=== PATIENT | female | born 1940 | race African-American/Black ===

== ENCOUNTER 2016-07-20 21:21 | Emergency (ER) | payer MEDICARE ==
[~2016-07-20] VITALS: Ht 175.3 cm; Wt 80.0 kg
[~2016-07-20 21:21] MED LIST: ALL DAY10 MG PO; ALLOPURINOL100 MG OR; AMOXICILLIN/CL500 MG PO; AMOXICILLIN500 MG OR; AMOXICILLIN500 MG PO; ANTIVERT PO; ASA LO-DOSE81 MG OR; ASPIRIN EC325 MG PO; ASPIRIN EC81 MG PO; ASTELIN NASA137 MCG; ATORVASTATIN CA10 MG PO; AUGMENTIN875TAB PO; BAYER LOW81 MG OR; BENAZEPRIL10 MG PO; BENAZEPRIL20 M1 PO; CARVEDILOL25 MG PO; CATAPRES0.1 MG OR; CHILD ASA81 MG PO; CLONIDINE0.1 MG PO; COREG25 MG OR; FERROUS SULF325 M2 PO; FLEXERIL10 MG PO; FLEXERIL5 M1 PO; FLONASE SPRAY50 MC1; LOPRESSOR 550 MG/TAB PO; LOPRESSOR25 M1 PO; LORTAB 10 OR; LOTENSIN20 MG OR; LOTREL1 CA1 OR; MAXZIDE-2537.5 MG/TA PO; MOBIC7.5 M1 PO; NAPROSYN375 MG PO; NAPROXEN500 MG OR; OMNICEF300 MG OR; PEPCID AC10 M1 OR; PLAVIX75 MG OR; PLAVIX75 MG PO; PRAVACHOL40 MG PO; PRAVASTATIN SOD20 MG PO; PRAVASTATIN40 MG OR; PT UNSURE OF MEDS; SIMVASTATIN40 MG OR; SOLU-MEDROL125 MG IM; TOBRAMYCIN0.3 % OU; TRAMADOL HCL50 MG PO; TRIAM/HCTZ1 CAP OR; ULTRAM50 M1 PO; ULTRAM50 MG OR; ZOCOR20 MG OR; ZOFRAN ODT8 MG PO; ZPAK PO; ZYRTEC-D AL1 OR; allo OR
[2016-07-20 21:22] VITALS: BP 187/120
[2016-07-20] MEDS ORDERED: [UNRECOGNIZED DRUG - REMARK] (21:51)
== END 2016-07-20 22:55 | disposition left against medical advice (07) ==
LOC: ED 21:21 → LWOBS 22:55
DX: Z91.19 Patient's noncompliance with other medical treatment and regimen (principal)

== ENCOUNTER 2017-01-08 15:26 | Observation (INO) | payer MEDICARE ==
[~2017-01-08] VITALS: Ht 175.3 cm; Wt 69.6 kg
[~2017-01-08 15:26] MED LIST changes: +(None)1 % OD; +CYCLOBENZAPR5 MG PO; +MEDDOSEPAK PO; +METOPROL TAR25 MG PO; +NAPROSYN500 MG PO; +ROBITUSSIN AC10 ML PO; +[UNRECOGNIZED DRUG - REMARK]
[2017-01-08 16:49] LABS: HEMATOCRIT 36.6 % (37.0-47.0); HEMOGLOBIN 11.5 g/dl (12.0-16.0); IMMATURE GRANULOCYTES 0.2 % (0.0-1.0); MEAN CELL VOLUME 95.1 fL CALC (80.0-100.0); MEAN CORPUSCULAR HGB 29.9 pG CALC (26.0-32.0); MEAN CORPUSCULAR HGB CONC 31.4 g/L CALC (32.0-36.0); NEUT# 1.69 thou/uL (2.00-7.15); RED BLOOD COUNT 3.85 mill/uL (4.20-5.60); RED CELL DISTRI WIDTH 14.8 % (11.5-15.5)
[2017-01-08 17:01] LABS: ANION GAP 16 (6-22 (CALC)); BUN 22 mg/dL (8-23); BUN/CREATININE RATIO 21 (12-20 (CALC)); CALCIUM 9.4 mg/dL (8.4-10.2); CARBON DIOXIDE 25 mmol/l (22-30); CHLORIDE 109 mmol/l (95-108); GFR 54 ML/MIN (>=60 (CALC)); GFR FOR AFR.AMER. > 60 ML/MIN (>=60 (CALC)); GLUCOSE 99 mg/dL (82-115); SODIUM 146 mmol/l (137-146)
[2017-01-08 19:50] VITALS: BP 180/108
[2017-01-08 22:26] VITALS: BP 156/98
[2017-01-09] VITALS (7 sets, daily range): BP systolic 129–152; BP diastolic 80–98
[2017-01-09 06:21] LABS: HEMATOCRIT 34.6 % (37.0-47.0); HEMOGLOBIN 11.3 g/dl (12.0-16.0); IMMATURE GRANULOCYTES 0.3 % (0.0-1.0); MEAN CELL VOLUME 91.1 fL CALC (80.0-100.0); MEAN CORPUSCULAR HGB 29.7 pG CALC (26.0-32.0); MEAN CORPUSCULAR HGB CONC 32.7 g/L CALC (32.0-36.0); NEUT# 2.51 thou/uL (2.00-7.15); RED BLOOD COUNT 3.8 mill/uL (4.20-5.60); RED CELL DISTRI WIDTH 14.6 % (11.5-15.5)
[2017-01-09 06:37] LABS: ALBUMIN 3.5 g/dL (3.2-5.0); ALKALINE PHOSPHATASE 21 u/l (38-126); ANION GAP 12 (6-22 (CALC)); BILIRUBIN, TOTAL 0.7 mg/dL (0.0-1.4); BUN 15 mg/dL (8-23); BUN/CREATININE RATIO 17 (12-20 (CALC)); CALCIUM 9.2 mg/dL (8.4-10.2); CARBON DIOXIDE 28 mmol/l (22-30); CHLORIDE 109 mmol/l (95-108); CREATININE 0.9 mg/dL (0.5-1.0); GFR > 60 ML/MIN (>=60 (CALC)); GFR FOR AFR.AMER. > 60 ML/MIN (>=60 (CALC)); GLUCOSE 144 mg/dL (82-115); POTASSIUM 3.7 mmol/l (3.5-5.1); SGOT/AST 18 u/l (9-36); SGPT/ALT 23 u/l (11-66); SODIUM 145 mmol/l (137-146); TOTAL PROTEIN 6.2 g/dL (6.3-8.2)
[2017-01-10 04:19] VITALS: BP 138/80
[2017-01-10 06:06] LABS: HEMATOCRIT 30.7 % (37.0-47.0); HEMOGLOBIN 9.9 g/dl (12.0-16.0); IMMATURE GRANULOCYTES 0.3 % (0.0-1.0); MEAN CELL VOLUME 91.6 fL CALC (80.0-100.0); MEAN CORPUSCULAR HGB 29.6 pG CALC (26.0-32.0); MEAN CORPUSCULAR HGB CONC 32.2 g/L CALC (32.0-36.0); NEUT# 4.93 thou/uL (2.00-7.15); RED BLOOD COUNT 3.35 mill/uL (4.20-5.60); RED CELL DISTRI WIDTH 14.6 % (11.5-15.5)
[2017-01-10 06:21] LABS: BUN 19 mg/dL (8-23); BUN/CREATININE RATIO 19 (12-20 (CALC)); CALCIUM 8.9 mg/dL (8.4-10.2); CALCULATED LDLCHOLESTEROL 57 mg/dL (62-129 (CALC)); CARBON DIOXIDE 29 mmol/l (22-30); CHLORIDE 108 mmol/l (95-108); CHOLESTEROL HDL RATIO 2.1 (<4.4 (CALC)); GFR 54 ML/MIN (>=60 (CALC)); GFR FOR AFR.AMER. > 60 ML/MIN (>=60 (CALC)); GLUCOSE 96 mg/dL (82-115); HDL CHOLESTEROL 64 mg/dL (>=40); SODIUM 143 mmol/l (137-146); TOTAL CHOLESTEROL 133 mg/dl (0-199); TOTAL TRIGLYCERIDES 61 mg/dl (30-149); VLDL CHOLESTROL 12 mg/dl (0-48 (CALC))
[2017-01-10 06:22] LABS: ANION GAP 10 (6-22 (CALC))
[2017-01-10 08:38] VITALS: BP 137/72
[2017-01-10 13:36] VITALS: BP 138/84
[2017-01-10 15:46] VITALS: BP 158/94
== END 2017-01-10 16:50 | disposition home or self-care (01) ==
LOC: ED 15:26 → ED-I 17:21 → ED 17:37 → MS2 17:38
PROVIDERS: Family Medicine; ADMIT Internal Medicine Geriatric Medicine; ATTEND Internal Medicine Geriatric Medicine
DX: T59.811A Toxic effect of smoke, accidental (unintentional), initial encounter (principal); J98.01 Acute bronchospasm; I25.10 Atherosclerotic heart disease of native coronary artery without angina pectoris; I10 Essential (primary) hypertension; I25.2 Old myocardial infarction; E78.5 Hyperlipidemia, unspecified; M19.90 Unspecified osteoarthritis, unspecified site; K21.9 Gastro-esophageal reflux disease without esophagitis; K27.9 Peptic ulcer, site unspecified, unspecified as acute or chronic, without hemorrhage or perforation; E03.9 Hypothyroidism, unspecified; F41.9 Anxiety disorder, unspecified; Y92.009 Unspecified place in unspecified non-institutional (private) residence as the place of occurrence of the external cause; Z86.73 Personal history of transient ischemic attack (TIA), and cerebral infarction without residual deficits; R07.9 Chest pain, unspecified
CPT/HCPCS: G0328

== ENCOUNTER 2017-12-26 15:50 | Observation (INO) | payer MEDICARE ==
[~2017-12-26] VITALS: Ht 172.7 cm; Wt 68.0 kg
[~2017-12-26 15:50] MED LIST changes: +METO50TA52 PO; -METOPROL TAR25 MG PO
[2017-12-26 17:24] LABS: IMMATURE GRANULOCYTES 0.4 % (0.0-5.0); MEAN CELL VOLUME 92.5 fL CALC (80.0-100.0); MEAN CORPUSCULAR HGB 29.9 pG CALC (26.0-32.0); MEAN CORPUSCULAR HGB CONC 32.4 g/L CALC (32.0-36.0); NEUT# 8.79 thou/uL (2.00-7.15); RED BLOOD COUNT 4.41 mill/uL (4.20-5.60); RED CELL DISTRI WIDTH 13.5 % (11.5-15.5)
[2017-12-26] MEDS ORDERED: MELOXICAM7.5 MG PO (17:24)
[2017-12-26] MEDS ORDERED: TIZANIDINE2 MG PO (17:25)
[2017-12-26 17:27] LABS: HEMATOCRIT 40.8 % (37.0-47.0); HEMOGLOBIN 13.2 g/dl (12.0-16.0)
[2017-12-26] MEDS ORDERED: BLOOD PRESSURE (17:29)
[2017-12-26 17:40] LABS: ALKALINE PHOSPHATASE 24 u/l (38-126); ANION GAP 16 (6-22 (CALC)); BILIRUBIN, TOTAL 0.8 mg/dL (0.0-1.4); BUN 21 mg/dL (8-23); BUN/CREATININE RATIO 24 (12-20 (CALC)); CARBON DIOXIDE 25 mmol/l (22-30); CHLORIDE 104 mmol/l (95-108); CREATININE 0.9 mg/dL (0.5-1.0); GFR > 60 ML/MIN (>=60 (CALC)); GFR FOR AFR.AMER. > 60 ML/MIN (>=60 (CALC)); POTASSIUM 3.9 mmol/l (3.5-5.1); SGOT/AST 26 u/l (9-36); SODIUM 141 mmol/l (137-146); TOTAL PROTEIN 7.1 g/dL (6.3-8.2)
[2017-12-26 18:25] VITALS: BP 159/96
[2017-12-27 04:00] VITALS: BP 103/63
[2017-12-27 08:22] VITALS: BP 102/64
[2017-12-27 16:10] VITALS: BP 108/66
[2017-12-27 20:00] VITALS: BP 139/88
[2017-12-28 04:00] VITALS: BP 134/75
[2017-12-28 05:28] LABS: IMMATURE GRANULOCYTES 0.2 % (0.0-5.0); MEAN CELL VOLUME 91.9 fL CALC (80.0-100.0); MEAN CORPUSCULAR HGB 30.3 pG CALC (26.0-32.0); MEAN CORPUSCULAR HGB CONC 32.9 g/L CALC (32.0-36.0); NEUT# 4.42 thou/uL (2.00-7.15); RED BLOOD COUNT 3.6 mill/uL (4.20-5.60); RED CELL DISTRI WIDTH 13.8 % (11.5-15.5)
[2017-12-28 05:30] LABS: HEMATOCRIT 33.1 % (37.0-47.0); HEMOGLOBIN 10.9 g/dl (12.0-16.0)
[2017-12-28 05:42] LABS: ALKALINE PHOSPHATASE < 20 u/l (38-126); ANION GAP 10 (6-22 (CALC)); BILIRUBIN, TOTAL 0.5 mg/dL (0.0-1.4); BUN 22 mg/dL (8-23); BUN/CREATININE RATIO 25 (12-20 (CALC)); CALCULATED LDLCHOLESTEROL 39 mg/dL (62-129 (CALC)); CARBON DIOXIDE 31 mmol/l (22-30); CHLORIDE 105 mmol/l (95-108); CHOLESTEROL HDL RATIO 1.7 (<4.4 (CALC)); CREATININE 0.9 mg/dL (0.5-1.0); GFR > 60 ML/MIN (>=60 (CALC)); GFR FOR AFR.AMER. > 60 ML/MIN (>=60 (CALC)); HDL CHOLESTEROL 68 mg/dL (>=40); POTASSIUM 4.1 mmol/l (3.5-5.1); SGOT/AST 19 u/l (9-36); SODIUM 141 mmol/l (137-146); TOTAL CHOLESTEROL 116 mg/dl (0-199); TOTAL TRIGLYCERIDES 44 mg/dl (30-149); VLDL CHOLESTROL 9 mg/dl (0-48 (CALC))
[2017-12-28 05:43] LABS: TOTAL PROTEIN 5.5 g/dL (6.3-8.2)
[2017-12-28 08:00] VITALS: BP 134/82
[2017-12-28 10:37] LABS: URINE BILIRUBIN - DIPSTICK NEGATIVE (NEGATIVE); URINE BLOOD DIPSTICK NEGATIVE (NEGATIVE); URINE COLOR YELLOW; URINE GLUCOSE - DIPSTICK NEGATIVE (NEGATIVE); URINE KETONE NEGATIVE (NEGATIVE); URINE LEUK ESTERASE TRACE (NEGATIVE); URINE NITRITE - DIPSTICK NEGATIVE (Negative); URINE PH 7.5 (4.5-8.0); URINE PROTEIN - DIPSTICK NEGATIVE (NEG-TRACE); URINE UROBILINOGEN - DIPSTICK 0.2 E.U./dL (0.2)
[2017-12-28 10:38] LABS: URINE CLARITY CLEAR
[2017-12-28 16:23] VITALS: BP 127/83
[2017-12-28 20:49] VITALS: BP 132/76
[2017-12-29 04:00] VITALS: BP 151/88
[2017-12-29 04:54] LABS: HEMATOCRIT 33.9 % (37.0-47.0); HEMOGLOBIN 10.9 g/dl (12.0-16.0); IMMATURE GRANULOCYTES 0.2 % (0.0-5.0); MEAN CELL VOLUME 91.9 fL CALC (80.0-100.0); MEAN CORPUSCULAR HGB 29.5 pG CALC (26.0-32.0); MEAN CORPUSCULAR HGB CONC 32.2 g/L CALC (32.0-36.0); NEUT# 2.81 thou/uL (2.00-7.15); RED BLOOD COUNT 3.69 mill/uL (4.20-5.60); RED CELL DISTRI WIDTH 13.6 % (11.5-15.5)
[2017-12-29 05:11] LABS: ANION GAP 10 (6-22 (CALC)); BUN 19 mg/dL (8-23); BUN/CREATININE RATIO 21 (12-20 (CALC)); CARBON DIOXIDE 32 mmol/l (22-30); CHLORIDE 103 mmol/l (95-108); CREATININE 0.9 mg/dL (0.5-1.0); GFR > 60 ML/MIN (>=60 (CALC)); GFR FOR AFR.AMER. > 60 ML/MIN (>=60 (CALC)); POTASSIUM 3.9 mmol/l (3.5-5.1); SODIUM 141 mmol/l (137-146)
[2017-12-29 08:00] VITALS: BP 100/46
[2017-12-29 09:31] VITALS: BP 151/88
== END 2017-12-29 10:40 | disposition home or self-care (01) ==
LOC: ED 15:50 → ED-I 17:07 → ED 17:07 → MS2 17:13
PROVIDERS: Emergency Medicine; ADMIT Internal Medicine; ATTEND Internal Medicine Geriatric Medicine
DX: K56.41 Fecal impaction (principal); I10 Essential (primary) hypertension; I25.10 Atherosclerotic heart disease of native coronary artery without angina pectoris; I49.9 Cardiac arrhythmia, unspecified; K21.9 Gastro-esophageal reflux disease without esophagitis; K27.9 Peptic ulcer, site unspecified, unspecified as acute or chronic, without hemorrhage or perforation; E03.9 Hypothyroidism, unspecified; M17.11 Unilateral primary osteoarthritis, right knee; Z23 Encounter for immunization; Z86.73 Personal history of transient ischemic attack (TIA), and cerebral infarction without residual deficits; F41.1 Generalized anxiety disorder
CPT/HCPCS: Q9967

== ENCOUNTER 2018-05-11 15:53 | Emergency (ER) | payer MEDICARE ==
[~2018-05-11] VITALS: Ht 172.7 cm; Wt 85.0 kg
[~2018-05-11 15:53] MED LIST changes: +BLOOD PRESSURE; +MELOXICAM7.5 MG PO; +TIZANIDINE2 MG PO
[2018-05-11 18:30] LABS: HEMATOCRIT 34.9 % (37.0-47.0); HEMOGLOBIN 11.1 g/dl (12.0-16.0); IMMATURE GRANULOCYTES 0.2 % (0.0-5.0); MEAN CELL VOLUME 92.3 fL CALC (80.0-100.0); MEAN CORPUSCULAR HGB 29.4 pG CALC (26.0-32.0); MEAN CORPUSCULAR HGB CONC 31.8 g/L CALC (32.0-36.0); NEUT# 2.97 thou/uL (2.00-7.15); RED BLOOD COUNT 3.78 mill/uL (4.20-5.60); RED CELL DISTRI WIDTH 14.7 % (11.5-15.5)
[2018-05-11 18:51] LABS: ANION GAP 12 (6-22 (CALC)); BUN 20 mg/dL (8-23); BUN/CREATININE RATIO 20 (12-20 (CALC)); CARBON DIOXIDE 29 mmol/l (22-30); CHLORIDE 102 mmol/l (95-108); GFR 54 ML/MIN (>=60 (CALC)); GFR FOR AFR.AMER. > 60 ML/MIN (>=60 (CALC)); POTASSIUM 3.7 mmol/l (3.5-5.1); SODIUM 139 mmol/l (137-146)
[2018-05-11 19:15] LABS: URINE BILIRUBIN - DIPSTICK NEGATIVE (NEGATIVE); URINE BLOOD DIPSTICK NEGATIVE (NEGATIVE); URINE COLOR YELLOW; URINE GLUCOSE - DIPSTICK NEGATIVE (NEGATIVE); URINE KETONE NEGATIVE (NEGATIVE); URINE LEUK ESTERASE NEGATIVE (NEGATIVE); URINE NITRITE - DIPSTICK NEGATIVE (Negative); URINE PROTEIN - DIPSTICK NEGATIVE (NEG-TRACE); URINE UROBILINOGEN - DIPSTICK 0.2 E.U./dL (0.2)
[2018-05-11 20:27] VITALS: BP 181/92
== END 2018-05-11 20:40 | disposition home or self-care (01) ==
LOC: ED 15:53
PROVIDERS: Family Medicine
DX: R42 Dizziness and giddiness (principal); I10 Essential (primary) hypertension; R55 Syncope and collapse; Z86.73 Personal history of transient ischemic attack (TIA), and cerebral infarction without residual deficits

== ENCOUNTER 2019-04-24 | Emergency (ER) | payer MEDICARE ==
[2019-04-24] MEDS ORDERED: IRON (FERROUS S50 MG PO (03:26)
[2019-04-24] MEDS ORDERED: NORVASC2.5 M1 PO (03:27)
[2019-04-24 04:14] LABS: HEMATOCRIT 36.3 % (37.0-47.0); HEMOGLOBIN 11.9 g/dl (12.0-16.0); IMMATURE GRANULOCYTES 0.2 % (0.0-5.0); MEAN CELL VOLUME 90.3 fL CALC (80.0-100.0); MEAN CORPUSCULAR HGB 29.6 pG CALC (26.0-32.0); MEAN CORPUSCULAR HGB CONC 32.8 g/L CALC (32.0-36.0); NEUT# 4.58 thou/uL (2.00-7.15); RED BLOOD COUNT 4.02 mill/uL (4.20-5.60); RED CELL DISTRI WIDTH 13.7 % (11.5-15.5)
[2019-04-24 04:28] LABS: BILIRUBIN, TOTAL 0.7 mg/dL (0.0-1.4); CREATININE 1.1 mg/dL (0.5-1.0); POTASSIUM 3.1 mmol/l (3.5-5.1)
[2019-04-24 04:29] LABS: ALBUMIN 4.3 g/dL (3.2-5.0); TOTAL PROTEIN 7.4 g/dL (6.3-8.2)
[2019-04-24] MEDS ORDERED: COLACE100 MG PO (05:28)
== END 2019-04-24 06:10 | disposition home or self-care (01) ==
PROVIDERS: Emergency Medicine
DX: K59.00 Constipation, unspecified (principal); I10 Essential (primary) hypertension

== ENCOUNTER 2019-10-22 12:54 | Inpatient (IN) | payer MEDICARE ==
[~2019-10-22] VITALS: Ht 175.3 cm; Wt 66.0 kg
[~2019-10-22 12:54] MED LIST changes: +COLACE100 MG PO; +IRON (FERROUS S50 MG PO; +NORVASC2.5 M1 PO
--- NOTE | 2019-10-22 12:55 | NUR ---
PATIENT SEEN IN [facility] HAS SWELLING TO LEFT HAND FROM BEE STING JUST PRIOR TO ARRIVAL TO HOSPITAL. PATIENT HAS NO SOB OR THROAT SWELLING AT THIS TIME. PATIENT INFORMED OF WAIT AND VERBALIZES UNDERSTANDING. MD NOTIFIED OF PATIENT STATUS
--- NOTE | 2019-10-22 13:33 | NUR ---
PATIENT STATES THAT BEE STING NOW HAPPEN ED 2 DAYS PRIOR NOT TODAY. MD NOTIFIED OF PATIENT STATUS
--- NOTE | 2019-10-22 14:30 | NUR ---
PT RESTING SUPINE IN NO DISTRESS. VSS. PT ALERT AND RESPONSIVE
[2019-10-22 14:40] LABS: IMMATURE GRANULOCYTES 0.3 % (0.0-5.0); MEAN CORPUSCULAR HGB 29.1 pG CALC (26.0-32.0); MEAN CORPUSCULAR HGB CONC 31.3 g/dL CAL (32.0-36.0); NEUT# 1.88 thou/uL (2.00-7.15); RED BLOOD COUNT 3.44 mill/uL (4.20-5.60); RED CELL DISTRI WIDTH 14.3 % (11.5-15.5)
[2019-10-22 15:02] LABS: ALBUMIN 3.7 g/dL (3.2-5.0); ALKALINE PHOSPHATASE 26 u/l (38-126); ANION GAP 7 (6-22 (CALC)); BILIRUBIN, TOTAL 0.5 mg/dL (0.0-1.4); BUN 26 mg/dL (8-23); BUN/CREATININE RATIO 25 (12-20 (CALC)); CARBON DIOXIDE 29 mmol/l (22-30); CHLORIDE 108 mmol/l (95-108); GFR 53 ML/MIN (>=60 (CALC)); GFR FOR AFR.AMER. > 60 ML/MIN (>=60 (CALC)); POTASSIUM 3.4 mmol/l (3.5-5.1); SGOT/AST 25 u/l (9-36); SODIUM 140 mmol/l (137-146); TOTAL PROTEIN 6.6 g/dL (6.3-8.2)
--- NOTE | 2019-10-22 16:20 | NUR ---
ASSISTED PT UP TO [facility] TO URINATE. PT MOVES WELL BUT SLOWLY. NO DEFICITS NOTED. PT STOOD AT BEDSIDE, PT STATES SHE "FEELS WEAK ALL OVER". PT DENIES ANY FOCAL WEAKNESS. PT STATES SHE "FELT DIZZY EARLIER TODAY". PT DENIES DIZZINESS AT THIS TIME. PT ALERT AND ORIENTED X4. SWITCHBOARD MANAGER A T BEDSIDE. UPDATED ON POC AND MRI
[2019-10-22 17:45] LABS: URINE BILIRUBIN - DIPSTICK NEGATIVE (NEGATIVE); URINE BLOOD DIPSTICK NEGATIVE (NEGATIVE); URINE COLOR YELLOW; URINE GLUCOSE - DIPSTICK NEGATIVE (NEGATIVE); URINE KETONE NEGATIVE (NEGATIVE); URINE LEUK ESTERASE NEGATIVE (NEGATIVE); URINE NITRITE - DIPSTICK NEGATIVE (Negative); URINE PROTEIN - DIPSTICK NEGATIVE (NEG-TRACE); URINE SPECIFIC GRAVITY 1.025; URINE UROBILINOGEN - DIPSTICK 0.2 E.U./dL (0.2)
--- NOTE | 2019-10-22 18:00 | NUR ---
PT RESTIGN SUPINE , LAUGHING AND TALKING WITH AERIAL HURRICANE HUNTER. UPDATED ON POC AND WAIT TIME. PT DENIES NEEDS AT THIS TIME
[2019-10-22] MEDS ORDERED: BUSPAR10 M1 PO (18:19)
[2019-10-22] MEDS ORDERED: LORATADINE10 M1 PO (18:19)
--- NOTE | 2019-10-22 18:40 | NUR ---
PT UPDATED ON ADMIT TO MED SURG. PT AGREEABLE AND PYTHON JAVA DEVELOPER AT BEDSIDE
--- NOTE | 2019-10-22 18:47 | NUR ---
SPOKE WITH DR BOOTHE TO NOTIFY OF BP 171/100 AND HR 66. ORDER FOR PO AMLODIPINE 5MG NOW.
--- NOTE | 2019-10-22 19:05 | NUR ---
called report to silvestre almodovar, report to tea velásquez in ed, updated on awaiting release of po amlodipine for bp before transport.
--- NOTE | 2019-10-22 19:15 | NUR ---
TELEPHONE REPORT RECEIVED FROM Richie BENITEZ RN IN ED.
--- NOTE | 2019-10-22 21:10 | NUR ---
BY STRETCHER TO ROOM 270
--- NOTE | 2019-10-22 21:20 | NUR ---
PT ARRIVES TO UNIT AT 2119 VIA STRETCHER, ACCOMPANIED BY Kamlesh DANG RN.
[2019-10-22 21:24] VITALS: BP 151/103
--- NOTE | 2019-10-22 21:50 | NUR ---
PT RESTING IN BED, ALERT AND ORIENTED. RESPIRATIONS ARE EVEN AND UNLABORED, LUNGS SOUND CLEAR. PEDAL PULSES ARE STRONG. PT DENIES ANY PAIN OR DISCOMFORT AT THIS TIME. PT ORIENTED TO ROOM AND CALL HINES SYSTEM. PT STATES SHE HASN'E HAD A BM IN A FEW DAYS, PT PROVIDED WITH MILK OF MAG AND PRUNE JUICE. PT ENCOURAGED TO CALL FOR ASSISTANCE. TELE IN PLACE. WILL CONTINUE TO MONITOR.
[2019-10-22 23:55] VITALS: BP 143/87
--- NOTE | 2019-10-23 01:22 | NUR ---
TROPONIN RESULTED, NEGATIVE.
[2019-10-23 03:55] VITALS: BP 129/80
[2019-10-23 06:03] LABS: CHOLESTEROL HDL RATIO 2.1 (<4.4 (CALC)); MAGNESIUM 2.3 mg/dL (1.6-2.3)
[2019-10-23 08:15] VITALS: BP 136/94
--- NOTE | 2019-10-23 08:15 | NUR ---
ASSESSMENT IS COMPLETED: IV SITE IS FREE FROM REDNESS OR EDEMA. HR IS REG,PULSES ARE STRONG X4, ABD IS SOFT WITH ACTIVE BS. BREATH SOUNDS ARE CLEAR,BILATERALLY, TELE MONITOR IN PLACE. LEFT HAND IS PUFFY.
[2019-10-23 10:30] VITALS: BP 142/90
[2019-10-23] MEDS ORDERED: PLAVIX75 MG PO (10:46)
--- NOTE | 2019-10-23 12:30 | NUR ---
PT RECEIVED DISCHARGE INSTRUCITONS AND VERBALIZED UNDERSTANDING. IV SITE AND TELE MONITOR DISCONTINUED, CATHETER INTACT. Discharge instructions given. Patient verbalizes understanding of same. Discharged in stable condition via Wheelchair to Home with family. All belongings sent with pt.
--- NOTE | 2019-10-23 13:31 | NUR ---
PT CAME BACK TO THE HOSPITAL. NOTICED A KNOT ON HER R FOREARM. INQUIRED "WHAT CAN I DO" EXPLAINED ABOUT PUTTING AN ICE PACK ON IT. LOOKS LIKE WHEN LAB WAS DRAWN , UPSET THE VEIN. CAN SEE A SMALL PUNCTURE. AND BRUISING WAS STARTING. PT STATED" I BELIEVE IT HAPPENED WHEN THEY PUT THAT NEEDLE IN". INSTRUCTED ABOUT THE ICE PACK. SON WAS WITH PT.
--- NOTE | 2019-10-23 14:06 | NUR ---
Attempted to see patient. Patient discharged.
== END 2019-10-23 12:30 | disposition home or self-care (01) | DRG 948 ==
LOC: ED 12:54 → ED-I 15:15 → ED 15:53 → ICU 15:54 → MS2 15:54
PROVIDERS: Family Medicine; Nurse Practitioner; ADMIT Internal Medicine; ATTEND Internal Medicine
DX: R41.3 Other amnesia (principal); R20.0 Anesthesia of skin; T63.441A Toxic effect of venom of bees, accidental (unintentional), initial encounter; I10 Essential (primary) hypertension; Z86.73 Personal history of transient ischemic attack (TIA), and cerebral infarction without residual deficits; Z20.828 Contact with and (suspected) exposure to other viral communicable diseases
CPT/HCPCS: J1650

== ENCOUNTER 2020-10-03 10:41 | Emergency (ER) | payer MEDICARE ==
[~2020-10-03 10:41] MED LIST changes: +BUSPAR10 M1 PO; +FLEXERIL5 MG PO; +LORATADINE10 M1 PO; +TAM75CAP PO
[2020-10-03 12:11] LABS: IMMATURE GRANULOCYTES 0.3 % (0.0-5.0); MEAN CELL VOLUME 95.9 fL CALC (80.0-100.0); MEAN CORPUSCULAR HGB 30.9 pG CALC (26.0-32.0); MEAN CORPUSCULAR HGB CONC 32.2 g/dL CAL (32.0-36.0); NEUT# 1.95 thou/uL (2.00-7.15); RED BLOOD COUNT 3.14 mill/uL (4.20-5.60); RED CELL DISTRI WIDTH 14.9 % (11.5-15.5)
[2020-10-03 12:12] LABS: HEMATOCRIT 30.1 % (37.0-47.0); HEMOGLOBIN 9.7 g/dl (12.0-16.0)
[2020-10-03 12:36] LABS: ACT PARTIAL THROMBO TIME 22.6 SECONDS (20.0-32.5); PROTHROMBIN TIME 10.5 SECONDS (9.0-12.5)
[2020-10-03 12:47] LABS: ALBUMIN 3.6 g/dL (3.2-5.0); ALKALINE PHOSPHATASE < 20 u/l (38-126); ANION GAP 8 (6-22 (CALC)); BILIRUBIN, TOTAL 0.7 mg/dL (0.0-1.4); BUN 20 mg/dL (8-23); BUN/CREATININE RATIO 18 (12-20 (CALC)); CARBON DIOXIDE 27 mmol/l (22-30); CHLORIDE 108 mmol/l (95-108); CREATININE 1.2 mg/dL (0.5-1.0); GFR 43 ML/MIN (>=60 (CALC)); GFR FOR AFR.AMER. 52 ML/MIN (>=60 (CALC)); LIPASE 56 u/l (23-300); POTASSIUM 3.2 mmol/l (3.5-5.1); SGOT/AST 24 u/l (9-36); SODIUM 141 mmol/l (137-146); TOTAL PROTEIN 6.5 g/dL (6.3-8.2)
[2020-10-03 14:31] VITALS: BP 136/58
== END 2020-10-03 14:31 | disposition home or self-care (01) ==
LOC: ED 10:41
DX: R51.9 Headache, unspecified (principal); D72.819 Decreased white blood cell count, unspecified; D64.9 Anemia, unspecified; E87.6 Hypokalemia; I10 Essential (primary) hypertension; I25.10 Atherosclerotic heart disease of native coronary artery without angina pectoris; I25.2 Old myocardial infarction; J45.909 Unspecified asthma, uncomplicated; Z86.73 Personal history of transient ischemic attack (TIA), and cerebral infarction without residual deficits; E78.5 Hyperlipidemia, unspecified; Z20.822 Contact with and (suspected) exposure to COVID-19

== ENCOUNTER 2020-11-06 09:42 | Emergency (ER) | payer MEDICARE ==
[~2020-11-06] VITALS: Ht 175.3 cm; Wt 68.0 kg
[2020-11-06 10:29] LABS: HEMATOCRIT 29.9 % (37.0-47.0); HEMOGLOBIN 9.5 g/dl (12.0-16.0); MEAN CELL VOLUME 96.1 fL CALC (80.0-100.0); MEAN CORPUSCULAR HGB 30.5 pG CALC (26.0-32.0); MEAN CORPUSCULAR HGB CONC 31.8 g/dL CAL (32.0-36.0); NEUT# 3.06 thou/uL (2.00-7.15); RED BLOOD COUNT 3.11 mill/uL (4.20-5.60); RED CELL DISTRI WIDTH 14.7 % (11.5-15.5)
[2020-11-06 10:46] LABS: ALBUMIN 3.3 g/dL (3.2-5.0); ALKALINE PHOSPHATASE < 20 u/l (38-126); ANION GAP 10 (6-22 (CALC)); BILIRUBIN, TOTAL 0.5 mg/dL (0.0-1.4); BUN 25 mg/dL (8-23); BUN/CREATININE RATIO 18 (12-20 (CALC)); CARBON DIOXIDE 26 mmol/l (22-30); CHLORIDE 108 mmol/l (95-108); CREATININE 1.4 mg/dL (0.5-1.0); GFR 36 ML/MIN (>=60 (CALC)); GFR FOR AFR.AMER. 44 ML/MIN (>=60 (CALC)); LIPASE 31 u/l (23-300); MAGNESIUM 2.3 mg/dL (1.6-2.3); POTASSIUM 3.6 mmol/l (3.5-5.1); SGOT/AST 26 u/l (9-36); SODIUM 140 mmol/l (137-146)
[2020-11-06 10:57] LABS: PROTHROMBIN TIME 10.5 SECONDS (9.0-12.5)
[2020-11-06 14:05] LABS: URINE BILIRUBIN - DIPSTICK NEGATIVE (NEGATIVE); URINE BLOOD DIPSTICK NEGATIVE (NEGATIVE); URINE COLOR YELLOW; URINE GLUCOSE - DIPSTICK NEGATIVE (NEGATIVE); URINE KETONE NEGATIVE (NEGATIVE); URINE LEUK ESTERASE NEGATIVE (NEGATIVE); URINE PROTEIN - DIPSTICK NEGATIVE (NEG-TRACE); URINE UROBILINOGEN - DIPSTICK 0.2 E.U./dL (0.2)
[2020-11-06 14:08] LABS: URINE NITRITE - DIPSTICK NEGATIVE (Negative)
[2020-11-06 17:29] VITALS: BP 118/68
== END 2020-11-06 18:01 | disposition home or self-care (01) ==
LOC: ED 09:42
PROVIDERS: Family Medicine
DX: I95.9 Hypotension, unspecified (principal); J98.4 Other disorders of lung; K76.89 Other specified diseases of liver; I10 Essential (primary) hypertension; I25.10 Atherosclerotic heart disease of native coronary artery without angina pectoris; J45.909 Unspecified asthma, uncomplicated; E78.5 Hyperlipidemia, unspecified; I25.2 Old myocardial infarction; Z86.73 Personal history of transient ischemic attack (TIA), and cerebral infarction without residual deficits; Z20.822 Contact with and (suspected) exposure to COVID-19

== ENCOUNTER 2022-01-30 14:58 | Observation (INO) | payer MEDICARE ==
[~2022-01-30] VITALS: Ht 175.3 cm; Wt 54.4 kg
[2022-01-30] VITALS (12 sets, daily range): BP systolic 133–187; BP diastolic 87–120
[2022-01-30 15:59] LABS: HEMOGLOBIN 9.7 g/dl (12.0-16.0); MEAN CELL VOLUME 92.1 fL CALC (80.0-100.0); MEAN CORPUSCULAR HGB 30.8 pG CALC (26.0-32.0); MEAN CORPUSCULAR HGB CONC 33.4 g/dL CAL (32.0-36.0); NEUT# 1.49 thou/uL (2.00-7.15); RED BLOOD COUNT 3.15 mill/uL (4.20-5.60); RED CELL DISTRI WIDTH 13.9 % (11.5-15.5)
[2022-01-30 16:01] LABS: ALBUMIN 3.3 g/dL (3.2-5.0); ALKALINE PHOSPHATASE < 20 u/l (38-126); ANION GAP 9 (6-22 (CALC)); BILIRUBIN, TOTAL 0.6 mg/dL (0.0-1.4); BUN 13 mg/dL (8-23); BUN/CREATININE RATIO 14 (12-20 (CALC)); CARBON DIOXIDE 27 mmol/l (22-30); CHLORIDE 108 mmol/l (95-108); GFR FOR AFR.AMER. > 60 ML/MIN (>=60 (CALC)); GFR OTHER RACES 53 ML/MIN (>=60 (CALC)); POTASSIUM 3.1 mmol/l (3.5-5.1); SGOT/AST 21 u/l (9-36); SODIUM 141 mmol/l (137-146); TOTAL PROTEIN 5.8 g/dL (6.3-8.2)
[2022-01-31] VITALS (7 sets, daily range): BP systolic 124–183; BP diastolic 86–114
[2022-01-31 05:48] LABS: CHOLESTEROL HDL RATIO 2.6 (<4.4 (CALC)); MAGNESIUM 1.9 mg/dL (1.6-2.3)
[2022-01-31] MEDS ORDERED: ATORVASTATIN CA40 MG PO (13:10)
== END 2022-01-31 17:00 | disposition home or self-care (01) ==
LOC: ED 14:58 → ED-I 17:24 → ED 17:24 → ED-I 17:24 → ED 17:26 → MS2 17:27
PROVIDERS: Family Medicine; ADMIT Internal Medicine; ATTEND Internal Medicine
DX: R07.89 Other chest pain (principal); M79.601 Pain in right arm; I10 Essential (primary) hypertension; I25.10 Atherosclerotic heart disease of native coronary artery without angina pectoris; E78.5 Hyperlipidemia, unspecified; I25.2 Old myocardial infarction; Z86.73 Personal history of transient ischemic attack (TIA), and cerebral infarction without residual deficits
CPT/HCPCS: J2060

== ENCOUNTER 2022-03-21 13:41 | Observation (INO) | payer MEDICARE ==
[2022-03-21] VITALS (26 sets, daily range): BP systolic 145–212; BP diastolic 78–134
[~2022-03-21] VITALS: Ht 175.3 cm; Wt 53.8 kg
[~2022-03-21 13:41] MED LIST changes: +ATORVASTATIN CA40 MG PO
[2022-03-21 14:25] LABS: BASO% 0.6 % (0-3); EOS% 4.2 % (0-8); HEMATOCRIT 33.2 % (37.0-47.0); HEMOGLOBIN 10.5 g/dl (12.0-16.0); LYMPH% 46.3 % (15-41); MEAN CELL VOLUME 94.6 fL CALC (80.0-100.0); MEAN CORPUSCULAR HGB 29.9 pG CALC (26.0-32.0); MEAN CORPUSCULAR HGB CONC 31.6 g/dL CAL (32.0-36.0); MONO% 11.9 % (2-13); NEUT# 1.34 thou/uL (2.00-7.15); RED BLOOD COUNT 3.51 mill/uL (4.20-5.60); RED CELL DISTRI WIDTH 14.9 % (11.5-15.5)
[2022-03-21 14:43] LABS: ALKALINE PHOSPHATASE 25 u/l (38-126); ANION GAP 7 (6-22 (CALC)); BILIRUBIN, TOTAL 0.6 mg/dL (0.0-1.4); BUN 14 mg/dL (8-23); BUN/CREATININE RATIO 13 (12-20 (CALC)); CARBON DIOXIDE 32 mmol/l (22-30); CHLORIDE 106 mmol/l (95-108); CREATININE 1.1 mg/dL (0.5-1.0); GFR FOR AFR.AMER. 58 ML/MIN (>=60 (CALC)); GFR OTHER RACES 48 ML/MIN (>=60 (CALC)); POTASSIUM 3.3 mmol/l (3.5-5.1); SGOT/AST 26 u/l (9-36); SODIUM 142 mmol/l (137-146); TOTAL PROTEIN 6.9 g/dL (6.3-8.2)
[2022-03-21 16:02] LABS: URINE BILIRUBIN - DIPSTICK NEGATIVE (NEGATIVE); URINE BLOOD DIPSTICK NEGATIVE (NEGATIVE); URINE GLUCOSE - DIPSTICK NEGATIVE (NEGATIVE); URINE KETONE NEGATIVE (NEGATIVE); URINE LEUK ESTERASE NEGATIVE (NEGATIVE); URINE PROTEIN - DIPSTICK NEGATIVE (NEG-TRACE); URINE UROBILINOGEN - DIPSTICK 0.2 E.U./dL (0.2)
[2022-03-21 16:04] LABS: URINE COLOR STRAW; URINE NITRITE - DIPSTICK NEGATIVE (Negative)
[2022-03-22] VITALS (7 sets, daily range): BP systolic 135–164; BP diastolic 74–97
[2022-03-22 03:20] LABS: HEMATOCRIT 29.3 % (37.0-47.0); HEMOGLOBIN 9.4 g/dl (12.0-16.0); MEAN CELL VOLUME 93.6 fL CALC (80.0-100.0); MEAN CORPUSCULAR HGB CONC 32.1 g/dL CAL (32.0-36.0); RED BLOOD COUNT 3.13 mill/uL (4.20-5.60); RED CELL DISTRI WIDTH 14.8 % (11.5-15.5)
[2022-03-22 03:34] LABS: ALBUMIN 3.3 g/dL (3.2-5.0); ALKALINE PHOSPHATASE 22 u/l (38-126); ANION GAP 3 (6-22 (CALC)); BILIRUBIN, TOTAL 0.5 mg/dL (0.0-1.4); BUN 13 mg/dL (8-23); BUN/CREATININE RATIO 15 (12-20 (CALC)); CALCULATED LDLCHOLESTEROL 87 mg/dL (62-129 (CALC)); CARBON DIOXIDE 31 mmol/l (22-30); CHLORIDE 111 mmol/l (95-108); CHOLESTEROL HDL RATIO 2.6 (<4.4 (CALC)); CREATININE 0.9 mg/dL (0.5-1.0); GFR FOR AFR.AMER. > 60 ML/MIN (>=60 (CALC)); GFR OTHER RACES 60 ML/MIN (>=60 (CALC)); HDL CHOLESTEROL 66 mg/dL (>=40); MAGNESIUM 2.2 mg/dL (1.6-2.3); POTASSIUM 2.8 mmol/l (3.5-5.1); SGOT/AST 20 u/l (9-36); SODIUM 142 mmol/l (137-146); TOTAL CHOLESTEROL 168 mg/dl (0-199); TOTAL PROTEIN 5.7 g/dL (6.3-8.2); TOTAL TRIGLYCERIDES 75 mg/dl (30-149); VLDL CHOLESTROL 15 mg/dl (0-48 (CALC))
[2022-03-22] MEDS ORDERED: POT CHLORIDE10 ME5 PO (12:39)
== END 2022-03-22 14:57 | disposition home or self-care (01) ==
LOC: ED 13:41 → ED-I 16:39 → ED 17:16 → MS2 17:17
PROVIDERS: Family Medicine; Internal Medicine; ADMIT Internal Medicine; ATTEND Internal Medicine
DX: R07.9 Chest pain, unspecified (principal); I10 Essential (primary) hypertension; I25.10 Atherosclerotic heart disease of native coronary artery without angina pectoris; E78.5 Hyperlipidemia, unspecified; J45.909 Unspecified asthma, uncomplicated; I25.2 Old myocardial infarction; Z86.73 Personal history of transient ischemic attack (TIA), and cerebral infarction without residual deficits; Z20.822 Contact with and (suspected) exposure to COVID-19

== ENCOUNTER 2022-08-09 20:45 | Emergency (ER) | payer MEDICARE ==
[2022-08-09] VITALS (8 sets, daily range): BP systolic 108–172; BP diastolic 68–120
[~2022-08-09] VITALS: Ht 175.3 cm; Wt 67.0 kg
[~2022-08-09 20:45] MED LIST changes: +POT CHLORIDE10 ME5 PO
[2022-08-10] VITALS (8 sets, daily range): BP systolic 144–162; BP diastolic 89–110
[2022-08-10 00:18] LABS: BASO% 0.6 % (0-3); EOS% 4.1 % (0-8); HEMOGLOBIN 11.2 g/dl (12.0-16.0); LYMPH% 47.2 % (15-41); MEAN CELL VOLUME 95.3 fL CALC (80.0-100.0); MEAN CORPUSCULAR HGB 29.2 pG CALC (26.0-32.0); MEAN CORPUSCULAR HGB CONC 30.7 g/dL CAL (32.0-36.0); MONO% 11.6 % (2-13); NEUT# 1.69 thou/uL (2.00-7.15); NEUT% 36.5 % (42-76); RED BLOOD COUNT 3.83 mill/uL (4.20-5.60)
[2022-08-10 00:19] LABS: HEMATOCRIT 36.5 % (37.0-47.0)
[2022-08-10 00:35] LABS: ALKALINE PHOSPHATASE 24 u/l (38-126); BILIRUBIN, TOTAL 0.6 mg/dL (0.02-1.3); BUN 26 mg/dL (8-23); BUN/CREATININE RATIO 20 (12-20 (CALC)); CARBON DIOXIDE 29 mmol/l (22-30); CHLORIDE 106 mmol/l (95-108); CREATININE 1.3 mg/dL (0.5-1.0); GFR FOR AFR.AMER. 47 ML/MIN (>=60 (CALC)); GFR OTHER RACES 39 ML/MIN (>=60 (CALC)); SGOT/AST 29 u/l (9-36); SODIUM 142 mmol/l (137-146)
[2022-08-10 00:37] LABS: ALBUMIN 4.3 g/dL (3.2-5.0); ANION GAP 11 (6-22 (CALC)); POTASSIUM 3.6 mmol/l (3.5-5.1); TOTAL PROTEIN 7.6 g/dL (6.3-8.2)
[2022-08-10] MEDS ORDERED: CYCLOBENZAPRINE10 MG PO (02:33)
[2022-08-10] MEDS ORDERED: ULTRAM50 MG PO (02:33)
== END 2022-08-10 02:56 | disposition home or self-care (01) ==
LOC: ED 20:45
PROVIDERS: Emergency Medicine
DX: M17.11 Unilateral primary osteoarthritis, right knee (principal); F41.9 Anxiety disorder, unspecified; I10 Essential (primary) hypertension; I25.10 Atherosclerotic heart disease of native coronary artery without angina pectoris; I25.2 Old myocardial infarction; E78.5 Hyperlipidemia, unspecified; Z86.73 Personal history of transient ischemic attack (TIA), and cerebral infarction without residual deficits; Z20.822 Contact with and (suspected) exposure to COVID-19
CPT/HCPCS: J2060

== ENCOUNTER 2022-09-04 15:04 | Emergency (ER) | payer MEDICARE ==
[~2022-09-04] VITALS: Ht 175.3 cm; Wt 54.0 kg
[2022-09-04] VITALS (12 sets, daily range): BP systolic 131–165; BP diastolic 77–99
[~2022-09-04 15:04] MED LIST changes: +CYCLOBENZAPRINE10 MG PO; +ULTRAM50 MG PO
[2022-09-04 16:54] LABS: BASO% 0.7 % (0-3); EOS% 2.8 % (0-8); HEMATOCRIT 34.2 % (37.0-47.0); HEMOGLOBIN 10.6 g/dl (12.0-16.0); LYMPH% 26.7 % (15-41); MEAN CELL VOLUME 94.5 fL CALC (80.0-100.0); MEAN CORPUSCULAR HGB 29.3 pG CALC (26.0-32.0); MONO% 11.8 % (2-13); NEUT# 2.52 thou/uL (2.00-7.15); RED BLOOD COUNT 3.62 mill/uL (4.20-5.60); RED CELL DISTRI WIDTH 13.9 % (11.5-15.5)
[2022-09-04 17:13] LABS: ALBUMIN 3.9 g/dL (3.2-5.0); BILIRUBIN, TOTAL 0.6 mg/dL (0.02-1.3); CREATININE 1.2 mg/dL (0.5-1.0); TOTAL PROTEIN 7.2 g/dL (6.3-8.2)
[2022-09-04] MEDS ORDERED: FERROUS SULF325 M3 PO (18:09)
== END 2022-09-04 18:30 | disposition home or self-care (01) ==
LOC: ED 15:04
PROVIDERS: Nurse Practitioner Family
DX: M62.838 Other muscle spasm (principal); D50.9 Iron deficiency anemia, unspecified; I10 Essential (primary) hypertension; I25.10 Atherosclerotic heart disease of native coronary artery without angina pectoris; E78.5 Hyperlipidemia, unspecified; I25.2 Old myocardial infarction; Z86.73 Personal history of transient ischemic attack (TIA), and cerebral infarction without residual deficits; J45.909 Unspecified asthma, uncomplicated

== ENCOUNTER 2023-11-17 22:05 | Emergency (ER) | payer MEDICARE ==
[~2023-11-17] VITALS: Ht 177.8 cm; Wt 55.0 kg
[~2023-11-17 22:05] MED LIST changes: +FERROUS SULF325 M3 PO
[2023-11-17 22:39] VITALS: BP 115/61
[2023-11-17 22:46] VITALS: BP 102/64
[2023-11-17] MEDS ORDERED: METAMUCIL1.7 G1 PO (23:05)
[2023-11-17] MEDS ORDERED: GLYCERIN 2 GM SUP RE ONE (23:05)
[2023-11-17] MEDS ORDERED: MIRALAX17 GM PO (23:05)
[2023-11-17] MEDS ORDERED: Peg 3350-POTASSIUM CHLORIDE-So 4,000 ML BTL PO ONE (23:05)
[2023-11-18 00:40] VITALS: BP 102/64
== END 2023-11-18 00:40 | disposition home or self-care (01) ==
LOC: ED 22:05
DX: K59.00 Constipation, unspecified (principal); I10 Essential (primary) hypertension; I25.10 Atherosclerotic heart disease of native coronary artery without angina pectoris; E78.00 Pure hypercholesterolemia, unspecified; I25.2 Old myocardial infarction; Z86.73 Personal history of transient ischemic attack (TIA), and cerebral infarction without residual deficits

== ENCOUNTER 2024-01-21 12:59 | Emergency (ER) | payer MEDICARE ==
[2024-01-21] VITALS (43 sets, daily range): BP systolic 125–175; BP diastolic 69–105
[~2024-01-21] VITALS: Ht 177.8 cm; Wt 54.4 kg
[~2024-01-21 12:59] MED LIST changes: +METAMUCIL1.7 G1 PO; +MIRALAX17 GM PO
[2024-01-21 13:34] LABS: URINE BILIRUBIN - DIPSTICK Negative (NEGATIVE); URINE BLOOD DIPSTICK Negative (NEGATIVE); URINE GLUCOSE - DIPSTICK Negative (NEGATIVE); URINE KETONE Trace mg/dL (NEGATIVE); URINE LEUK ESTERASE Negative (NEGATIVE); URINE NITRITE - DIPSTICK Negative (Negative); URINE PH 6.5 (4.5-8.0); URINE PROTEIN - DIPSTICK 30 mg/dL (NEG-TRACE); URINE SPECIFIC GRAVITY 1.015
[2024-01-21 13:34] LABS: BASO% 1.1 % (0-3); EOS% 3.5 % (0-8); HEMOGLOBIN 9.1 g/dl (12.0-16.0); LYMPH% 44.1 % (15-41); MEAN CELL VOLUME 99.3 fL CALC (80.0-100.0); MEAN CORPUSCULAR HGB 31.2 pG CALC (26.0-32.0); MEAN CORPUSCULAR HGB CONC 31.4 g/dL CAL (32.0-36.0); MONO% 13.9 % (2-13); NEUT# 1.4 thou/uL (2.00-7.15); NEUT% 37.4 % (42-76); RED BLOOD COUNT 2.92 mill/uL (4.20-5.60); RED CELL DISTRI WIDTH 15.3 % (11.5-15.5)
[2024-01-21 13:43] LABS: URINE COLOR Yellow
[2024-01-21 13:44] LABS: URINE EPITHELIAL CELLS MODERATE EPI/hpf (0-FEW)
[2024-01-21 13:56] LABS: ALBUMIN 3.4 g/dL (3.2-5.0); ANION GAP 12 (6-22 (CALC)); BILIRUBIN, TOTAL 0.5 mg/dL (0.02-1.3); BUN 39 mg/dL (8-23); BUN/CREATININE RATIO 25 (12-20 (CALC)); CARBON DIOXIDE 29 mmol/l (22-30); CHLORIDE 107 mmol/l (95-108); CREATININE 1.6 mg/dL (0.5-1.0); ESTIMATED GFR 32 ML/MIN (>=90 (CALC)); LIPASE 58 u/l (23-300); POTASSIUM 3.9 mmol/l (3.5-5.1); SGOT/AST 25 u/l (9-36); SODIUM 143 mmol/l (137-146); TOTAL PROTEIN 6.1 g/dL (6.3-8.2)
[2024-01-21] MEDS ORDERED: BENAZEPRIL40 M1 PO (14:06)
[2024-01-21] MEDS ORDERED: CLOPIDOGREL75 MG PO (14:06)
[2024-01-21] MEDS ORDERED: IPRATROPIU0.5 MG/3 M IN (14:07)
[2024-01-21] MEDS ORDERED: AMLODIPINE BES2.5 MG PO (14:07)
[2024-01-21] MEDS ORDERED: METOPROLOL SUCC50 MG PO (14:07)
[2024-01-21] MEDS ORDERED: TRIAMTERENE/HYD1 CAP PO (14:08)
[2024-01-21] MEDS ORDERED: SYMBICORT1 AE1 IN (14:09)
[2024-01-21] MEDS ORDERED: ATORVASTATIN CA20 MG PO (14:10)
[2024-01-21 14:26] LABS: ALKALINE PHOSPHATASE < 20 u/l (38-126)
[2024-01-21] MEDS ORDERED: AMOX/K CLAV875 M1 PO (16:29)
[2024-01-21] MEDS ORDERED: ZPAK PO (16:29)
== END 2024-01-21 17:03 | disposition home or self-care (01) ==
LOC: ED 12:59
PROVIDERS: Family Medicine
DX: T42.8X1A Poisoning by antiparkinsonism drugs and other central muscle-tone depressants, accidental (unintentional), initial encounter (principal); R41.82 Altered mental status, unspecified; J18.9 Pneumonia, unspecified organism; I10 Essential (primary) hypertension; I25.10 Atherosclerotic heart disease of native coronary artery without angina pectoris; E78.5 Hyperlipidemia, unspecified; I25.2 Old myocardial infarction; Y92.009 Unspecified place in unspecified non-institutional (private) residence as the place of occurrence of the external cause; Z86.73 Personal history of transient ischemic attack (TIA), and cerebral infarction without residual deficits